=== PATIENT | female | born 1945 | race Caucasian/White ===

== ENCOUNTER → 2016-09-03 | Outpatient (CLI) | payer OTHER, MEDICARE | LOC: FIMAGING 13:27 | DX: Z12.31 Encounter for screening mammogram for malignant neoplasm of breast (principal) | CPT/HCPCS: G0202 ==

== ENCOUNTER → 2016-10-06 | Outpatient (CLI) | payer OTHER, MEDICARE | LOC: FIMAGING 14:00 | PROVIDERS: ATTEND Nurse Practitioner | DX: Z13.820 Encounter for screening for osteoporosis (principal); E11.9 Type 2 diabetes mellitus without complications; E78.2 Mixed hyperlipidemia; I10 Essential (primary) hypertension; Z85.3 Personal history of malignant neoplasm of breast ==

== ENCOUNTER → 2017-08-03 | Outpatient (CLI) | payer OTHER, MEDICARE | LOC: BRMIMAGING 11:47 | PROVIDERS: ATTEND Neurological Surgery | DX: M51.36 Other intervertebral disc degeneration, lumbar region (principal); M43.16 Spondylolisthesis, lumbar region; M41.85 Other forms of scoliosis, thoracolumbar region | CPT/HCPCS: 72100-PO ==

== ENCOUNTER → 2017-09-06 | Outpatient (CLI) | payer OTHER, MEDICARE | LOC: FIMAGING 11:15 | PROVIDERS: ATTEND Nurse Practitioner | DX: Z12.31 Encounter for screening mammogram for malignant neoplasm of breast (principal); Z85.3 Personal history of malignant neoplasm of breast; Z80.3 Family history of malignant neoplasm of breast ==

== ENCOUNTER → 2017-09-15 | Outpatient (CLI) | payer OTHER, MEDICARE | LOC: BRMIMAGING 13:12 | PROVIDERS: ATTEND Physician Assistant | DX: Z13.820 Encounter for screening for osteoporosis (principal); M85.89 Other specified disorders of bone density and structure, multiple sites; Z78.0 Asymptomatic menopausal state; Z85.3 Personal history of malignant neoplasm of breast ==

== ENCOUNTER 2017-10-05 05:15 | Inpatient (IN) | payer OTHER, MEDICARE ==
[2017-09-29 14:30] LABS: PLATELET COUNT 175 10^3/uL (150-400)
[2017-10-05] MEDS ORDERED: ceFAZolin 2 GM/DEXTROSE 100 ML IV ONE (06:12)
[2017-10-05] MEDS ORDERED: morphINE SR 15 MG TAB PO ONE (06:12)
[2017-10-05] MEDS ORDERED: GABAPENTIN 300 MG CAP PO ONE (06:12)
[2017-10-05] MEDS ORDERED: ACETAMINOPHEN 500 MG TAB PO ONE (06:12)
[2017-10-05] MEDS ORDERED: morphINE PF 0.2 MG in SYRINGE INTRATHECAL 1 SYR IT ONE (06:12)
[2017-10-05] MEDS ORDERED: LR 1,000 ML IV ONE (06:14)
[2017-10-05] MEDS ORDERED: LIDOCAINE 1% 5 ML SDV ID PRN (06:14)
[2017-10-05] MEDS ORDERED: BACITRACIN 50,000 UNITS/10 ML SYR IRR ONE ×3 (06:45→11:51)
[2017-10-05] MEDS ORDERED: EPINEPHrine 1 MG/ML INJ ONE (06:45)
[2017-10-05] MEDS ORDERED: BUPIVACAINE 0.25% 30 ML SDV ONE (06:45)
[2017-10-05] MEDS ORDERED: THROMBIN (BOVINE) 20,000 UNIT VIAL TP ONE (06:45)
--- NOTE | 2017-10-05 06:47 | PDHPUP ---
History & Physical Update H&P update statement: This history and physical update is based on an assessment of the patient which was completed after admission or registration (within 24 hours), but prior to the surgery/procedure. H&P update: H&P reviewed & patient examined, no change in patient's condition since H&P completed (Consents signed, site marked and all questions answered. )
[2017-10-05] MEDS ORDERED: CHLORHEXIDINE GLUC HIBICLENS 118 ML BTL TP ONE (06:48)
[2017-10-05] MEDS ORDERED: CITRATE DEXTROSE SOLN 500 ML BAG ONE ×2 (06:48→11:33)
[2017-10-05] MEDS ORDERED: SCOPOLAMINE HYDROBROMIDE 1 MG/3 DAYS PATCH TD ONE (07:26)
[2017-10-05] MEDS ORDERED: MIDAZOLAM 2 MG/2 ML VIAL IVP ONE (07:28)
--- NOTE | 2017-10-05 07:30 | PDANEPAE ---
ANE Past Medical History - Cardiovascular History Hx Hypertension: Yes Hx Arrhythmias: No Hx Chest Pain: No Hx Coronary Artery / Peripheral Vascular Disease: No Hx CHF / Valvular Disease: No Hx Palpitations: No - Pulmonary History Hx COPD: No Hx Asthma/Reactive Airway Disease: No Hx Recent Upper Respiratory Infection: No Hx Oxygen in Use at Home: No Hx Sleep Apnea: Yes Sleep Apnea Screening Result - Last Documented: Positive Pulmonary History Comment: sleep apnea; Narrow Nasel Passage; possibly had TB as child but unknown; - Neurologic History Hx Cerebrovascular Accident: No Hx Seizures: No Hx Dementia: No - Endocrine History Hx Diabetes: Yes Hypothyroid: No Hyperthyroid: No Obesity: severe Endocrine History Comment: T2 DM controlled w/out prescription meds; - Renal History Hx Renal Disorders: No - Liver History Hx Hepatic Disorders: No - Neurological & Psychiatric Hx Hx Neurological and Psychiatric Disorders: No - Cancer History Hx Cancer: Yes Cancer History Comment: Breast CA; rectal polyps; "froze off spot on cheek" - Congenital Disorder History Hx Congenital Disorders: No Congenital History Comment: cancer,arthritis - GI History Hx Gastrointestinal Disorders: No Gastrointestinal History Comment: gerd - Other Health History Other Health History: spinal stenosis; premature 3.5lbs; Anemia as child; - Chronic Pain History Chronic Pain: Yes (lower back;) - Surgical History Prior Surgeries: T&A; total Hysterectomy; [place] teeth; R breast lumpectomy x 2 ; Nasal; L Knee replacement x 3; B laser eye; Appy; ANE Review of Systems Review of Systems: - Exercise capacity METS (RN): 4 METS ANE Patient History - Allergies Allergies/Adverse Reactions: tetanus immune globulin [Tetanus Immune Globulin] Allergy (Unknown, Verified 06/20 10:02) Hives cat dander Allergy (Verified 08/02/17 10:02) dog dander Allergy (Verified 08/02/17 10:02) oxycodone [From Percocet] Allergy (Verified 08/02/17 10:02) Itching shellfish derived Allergy (Verified 08/02/17 10:01) Hives - Home Medications Home Medications: Acetaminophen [Tylenol ES 500 mg (*)] 500 mg PO Q4 PRN 09/10/17 [Last Taken 09/17] Ascorbic Acid [Vitamin C 500 mg (*)] 2,000 mg PO DAILY 09/10/17 [Last Taken 08/18] Aspirin EC [Aspirin EC 81 mg (*)] 162 mg PO DAILY 09/10/17 [Last Taken 09/28/17] Atorvastatin Calcium [Lipitor 40 mg (*)] 40 mg PO HS 09/10/17 [Last Taken ] Calcium Carb W/Vit D [Calcium Carb W/Vit D 500/200 (*)] 2 each PO DAILY [Last Taken 10/04/17] Cyanocobalamin [Vitamin B12 (*)] 2,500 mcg PO DAILY 09/10/17 [Last Taken ] Diclofenac Sodium [Voltaren 75 MG (*)] 75 mg PO BID 09/10/17 [Last Taken ] Folic Acid [Folic Acid 1 MG (*)] 1 mg PO DAILY 09/10/17 [Last Taken 10/05/17] Furosemide [Lasix 40 MG (*)] 40 mg PO DAILY 09/10/17 [Last Taken 10/04/17] Herbals/Supplements -Info Only 1 ea PO DAILY 09/10/17 [Last Taken 10/04/17] Methotrexate Sodium [Rheumatrex 2.5 mg (RX)] 15 mg PO MO@09 09/10/17 [Last Taken 09/28/17] Multivitamins [Multivitamin (*)] 1 each PO DAILY 09/10/17 [Last Taken 10/04/17] [place]-3 Fatty Acids [Fish Oil 1000 mg (*)] 2,000 mg PO DAILY 09/10/17 [Last Taken 09/28/17] Valsartan [Diovan (*)] 160 mg PO DAILY 09/10/17 [Last Taken 10/04/17] amLODIPine BESYLATE [Norvasc 2.5 mg (*)] 2.5 mg PO DAILY 09/10/17 [Last Taken ] Acetaminophen [Tylenol 325mg (*)] 325 mg PO DAILY PRN 10/05/17 [Last Taken 10/05 01:30] - NPO status NPO Since - Liquids (Date): 10/04/17 NPO Since - Liquids (Time): 04:00 NPO Since - Solids (Date): 10/04/17 NPO Since - Solids (Time): 23:00 - Smoking Hx Smoking Status: Never smoked - Family Anes Hx Family Hx Anesthesia Complications: denies ANE Labs/Vital Signs - Labs Result Diagrams: 09/29/17 14:18 09/29/17 14:18 - Vital Signs Blood Pressure: 145/93 Heart Rate: 86 Respiratory Rate: 16 O2 Sat (%): 94 Height: 154.94 cm Weight: 92.079 kg ANE Physical Exam - Airway Neck exam: decreased ROM Mallampati Score: Class 2 Mouth exam: normal dental/mouth exam - Pulmonary Pulmonary: no respiratory distress - Cardiovascular Cardiovascular: regular rate and rhythym - ASA Status ASA Status: III ANE Anesthesia Plan Anesthesia Plan: general endotracheal anesthesia Lines/Monitors: arterial line
[2017-10-05] MEDS ORDERED: MIDAZOLAM 2 MG/2 ML VIAL ONE (07:32)
[2017-10-05] MEDS ORDERED: REMIFENTANIL HCL 1 MG VIAL ONE ×3 (07:39)
[2017-10-05] MEDS ORDERED: fentaNYL 250 MCG/5 ML INJ ONE (07:39)
[2017-10-05] MEDS ORDERED: PROPOFOL/EMULSION 500 MG/50 ML BOTTLE IV ONE (07:40)
[2017-10-05] MEDS ORDERED: PHENYLEPHRINE HCL 100 MCG/ML SYR ONE ×3 (08:41→14:39)
[2017-10-05] MEDS ORDERED: ONDANSETRON 4 MG/2 ML VIAL ONE (08:41)
[2017-10-05] MEDS ORDERED: DEXAMETHASONE 4 MG/ML VIAL ONE (08:41)
[2017-10-05] MEDS ORDERED: ePHEDrine SULFATE 25 MG/5 ML SYR ONE ×2 (08:41→10:49)
[2017-10-05] MEDS ORDERED: GLYCOPYRROLATE 0.2 MG/1 ML VIAL ONE (09:31)
[2017-10-05] MEDS ORDERED: PHENYLEPHRINE 10 MG/ML SDV ONE (10:27)
[2017-10-05] MEDS ORDERED: HYDROmorphone HCL/NS 0.5 MG/ML SYR IVP PRN (15:34)
[2017-10-05] MEDS ORDERED: LACTULOSE 20 GM/30 ML UDCUP PO PRN (15:34)
[2017-10-05] MEDS ORDERED: POLYETHYLENE GLYCOL 3350 17 GM PKT PO PRN (15:34)
[2017-10-05] MEDS ORDERED: diphenhydrAMINE 25 MG CAP PO PRN (15:34)
[2017-10-05] MEDS ORDERED: ONDANSETRON DISINTEGRATING 4 MG TAB PO PRN (15:34)
[2017-10-05] MEDS ORDERED: BISACODYL 10 MG SUPP PR PRN (15:34)
[2017-10-05] MEDS ORDERED: MAGNESIUM HYDROXIDE 30 ML UDCUP PO PRN (15:34)
[2017-10-05] MEDS ORDERED: ONDANSETRON 4 MG/2 ML VIAL IVP PRN ×2 (15:34→15:58)
--- NOTE | 2017-10-05 15:50 | POSTOPPROG ---
Post Op Note Date of Operation: 10/05/17 Surgeon: Sandra Mcnamara Reprint Sorter: Roselyn Mcnamara PAAida Anesthesiologist: Morescu Anesthesia: GET(General Endotracheal) Pre-op Diagnosis: lumbar stenosis Post-op Diagnosis: same Indication: nerve compression Procedure: L2-S2 PSF with L2-S1 laminectomy, TLIFs, and bilat foraminotomies Findings: See dictation Inf/Abcess present in the surg proc area at time of surgery?: No Depth: Organ Space EBL: 500-1000 Complications: none Drains: Tyler Benjamin (x2) PA Addendum - Addendum .: S: Pt awake in PACU, denies pain. O: Sleeping but awakens easily NAD VSS Pupils equal, can read # of fingers shown MAEx4 Motor 5/5 BUE/BLE +LT Incision dressed cdi A: 72 yo F s/p L2-S2 PSF with L2-S1 laminectomy, TLIFs, and bilat foraminotomies P: To SDU overnight for monitoring given age, length of case, EBL PT/OT Post op xrays pending TEDs, SCDs, lovenox POD#1 Brace when OOB Pain management Call NS with any questions/concerns D/w Dr Randall
[2017-10-05] MEDS ORDERED: fentaNYL 100 MCG/2 ML INJ IVP PRN (15:58)
[2017-10-05] MEDS ORDERED: PROMETHAZINE HCL 25 MG/ML INJ IVP PRN (15:58)
[2017-10-05] MEDS ORDERED: LABETALOL HCL 5 MG/ML 20 ML MDV IVP PRN (15:58)
[2017-10-05] MEDS ORDERED: NALOXONE HCL 0.4 MG/ML INJ IVP PRN (15:58)
--- NOTE | 2017-10-05 15:58 | POSTANESTH ---
Post Anesthetic Evaluation Cardiovascular Status: Normal, Stable Respiratory Status: Normal, Stable Level of Consciousness/Mental Status: Can Participate in Eval Pain Control: Adequate, Prn Tx Ordered Nausea/Vomiting Control: Adequate, Prn Tx Ordered Complications Possibly Related to Anesthesia: None Noted
--- NOTE | 2017-10-05 16:50 | GOP ---
[f rep st] OPERATIVE REPORT DATE OF OPERATION: 10/05/2017 SURGEON: Butch Randall MD METAL FENCE ERECTOR: Sandra Mcnamara PA-C. ANESTHESIA: General. PREOPERATIVE DIAGNOSIS: 1. L2 through S1 lumbar spondylosis with scoliosis and severe spinal stenosis. 2. Low back pain. 3. Claudication. 4. Radiculopathy. 5. Weakness. 6. Treatment refractory to nonoperative intervention. POSTOPERATIVE DIAGNOSIS: 1. L2 through S1 lumbar spondylosis with scoliosis and severe spinal stenosis. 2. Low back pain. 3. Claudication. 4. Radiculopathy. 5. Weakness. 6. Treatment refractory to nonoperative intervention. PROCEDURE PERFORMED: 1. Posterior arthrodesis with approach to L2, L3, L4, L5, S1, and S2. 2. Posterolateral fusion with bilateral pedicle screw placement at L2, L3, L4, L5, S1, and S2 with S2 alar-pelvic screws from the Timeetra 5.5-6.0 System. 3. Decompressive laminectomy with bilateral medial facetectomies, L2-L3, L3-L4 , L4-L5, L5-S1. 4. Left-sided L2-L3 transforaminal lumbar interbody fusion with a 7 x 26 mm titanium coated PEEK cage filled with morselized autograft and allograft. 5. Left-sided L3-4 transforaminal lumbar interbody fusion with a 7 x 22 mm titanium coated PEEK cage filled with morselized autograft and allograft. 6. Left-sided L4-5 transforaminal lumbar interbody fusion with a 7 x 23 mm titanium PEEK elevate cage filled with morselized autograft and allograft. 7. Left-sided L5-S1 transfemoral lumbar interbody fusion with a 6 x 28 mm titanium coated PEEK cage filled with morselized autograft and allograft. 8. Posterolateral fusion on the right between L2 and S2 with morselized autograft and allograft. 9. Use of intraoperative 3D Stealth navigation. 10. Use of intraoperative fluoroscopy, less than 1-hour physician time. 11. Use of neuromonitoring. 12. Use of of the operating microscope. 13. Injection of preservative-free intrathecal narcotics. COMPLICATIONS: None. FINDINGS: per imaging SPECIMENS: None. ESTIMATED BLOOD LOSS: 850 mL. INDICATIONS: The patient is a 72-year-old, who unfortunately has been suffering from worsening low back pain with lower extremity claudication. She had evidence of scoliosis with severe spinal stenosis between L2 and L5. She also had claudication and radiculopathy refractory to nonoperative intervention. After discussion of the risks, benefits, and treatment alternatives, and after failing nonoperative intervention, we decided to proceed forth with surgery as described above. DESCRIPTION OF PROCEDURE: The patient was brought to the operating theater and underwent general endotracheal anesthesia without complications. She had Venodynes, LENNY hose, and the appropriate lines placed by Anesthesia. She was flipped prone onto the Tyler table and all bony processes inspected and padded. The lower lumbar region was prepped and draped in the usual sterile surgical fashion. A time-out was completed per protocol and the patient received antibiotics within 1-hour of incision. Using lateral fluoroscopy and a spinal needle, we picked our entry point to the L2 through S2 levels. This was marked in the midline. The incision was infiltrated with Marcaine with epinephrine. The incision was taken down with the scalpel blade, and then using the monopolar, taken down the midline through the lumbodorsal fascia. A subperiosteal dissection was carried out to the transverse processes of L2, L3, L4, L5, S1 and down to S2. Care taken to preserve the bilateral L1-L2 facet joint. Deep retractors were placed to maintain our exposure. We confirmed the level using lateral fluoroscopy. We attached the 3D Stealth navigation clamp to the spinous process of L4 and completed a 3D Stealth navigation spin. Using 3D Stealth navigation, we placed the private pilot holes for the bilateral pedicle screws at L2, L3, L4, L5, S1. All holes were manually palpated with no evidence of cortical breaches. Then tapped and placed 6.0 x 50 mm screws bilaterally at L2, 6.5 x 55 mm screws bilaterally at L3, 6.5 x 55 mm screw on the left at L4 and 6.5 x 50 mm screw on the right at L4, 6.5 x 50 mm screw on the left at L5, a 6.5 x 45 mm screw on the right at L5, a 6.5 x 40 mm screw on the left at S1, a 6.5 x 40 mm screw on the right at S1. We then completed bilateral S2 alar-pelvic screws with a 7.5 x 70 mm screw on the left, a 7.5 x 70 mm on the right at S2 from the ImmuVenast System. A 3D navigation spin demonstrated good placement of hardware. At this point, using combination of the bur tip on the drill bit, Kerrison punches and [place]ell rongeur, we completed a decompressive laminectomy with bilateral medial facetectomies at L2-L3, L3-L4, L4-L5 and L5-S1. We completed aggressive facetectomies on the left side between L2-L3, L3-L4, L4-L5 and L5- S1. We then moved down to L5-S1 where we distracted the disk space and completed the left L5-S1 diskectomy. We prepared the cartilaginous endplates and measured interbody space. We placed a 6 x 26 mm titanium coated PEEK cage filled with morselized autograft and allograft anteriorly and toward the midline. We packed additional morcellized autograft in the disk space for the interbody fusion. We let down the distraction and moved down to L4-5 where we completed a left-sided L4-5 diskectomy. We prepared the cartilaginous endplates and measured interbody space. We placed a 7 x 23 mm titanium PEEK elevate cage filled with morselized autograft and allograft anteriorly and toward the midline. We packed additional morcellized autograft into the disk space for the interbody fusion. We let down the distraction and moved up to L3- 4 and completed a left L3-4 diskectomy and prepared the cartilaginous endplates. We measured the interbody space and placed a 7 x 22 mm titanium coated PEEK cage filled with morselized autograft and allograft anteriorly and toward the midline. We packed additional morcellized autograft into the disk space for the interbody fusion. We let down distraction the and moved up to L2- L3 and complete left L2-3 diskectomy and prepared the cartilaginous endplates. We measured interbody space and placed a 7 x 26 mm titanium coated PEEK cage filled with morselized autograft and allograft anteriorly and toward the midline. We packed additional morcellized autograft in the disk space for the interbody fusion. We decorticated the bone on the right side between L2 and S2. The wound was irrigated copiously with bacitracin irrigation. We placed 2- rods into the heads of the screws between L2 and S2 and secured them down with cap screws, which were then tightened per the bookmaker's clerk's setting. Two crosslinks were placed at the L2-3 level and S1-S2 levels and secured down. We injected preservative-free intrathecal narcotics. We placed morselized autograft and allograft on the right side between L2 and S2 for the posterolateral fusion. A drain was left in the subfascial space and the suprafascial space. The wound was then closed in multiple layers using Vicryl sutures for the deep layers and Dermabond for the skin. The patient's wounds were dressed sterilely. She was flipped supine onto the transfer cart. She was awakened, extubated, and taken to the recovery room in stable condition. There were no complications and no noted changes on neuromonitoring throughout the procedure. /[id number]/MODL MTDD
[2017-10-05] MEDS: NS 1,000 ML IV SCH (18:01)
[2017-10-05] MEDS: ceFAZolin 2 GM/DEXTROSE 100 ML IV SCH (18:02)
[2017-10-05] MEDS: SCOPOLAMINE HYDROBROMIDE 1 MG/3 DAYS PATCH TD SCH (18:24)
[2017-10-05] MEDS: POLYETHYLENE GLYCOL 3350 17 GM PKT PO SCH ×2 (18:24→22:34)
[2017-10-05] MEDS: SENNOSIDES/DOCUSATE SODIUM TAB PO SCH (20:02)
[2017-10-05] MEDS: ATORVASTATIN CALCIUM 40 MG TAB PO SCH (20:02)
[2017-10-05] MEDS: FAMOTIDINE 20 MG TAB PO SCH (20:02)
[2017-10-05] MEDS: ACETAMINOPHEN 500 MG TAB PO SCH (22:33)
[2017-10-06] MEDS: ceFAZolin 2 GM/DEXTROSE 100 ML IV SCH (00:29)
[2017-10-06] MEDS: NS 1,000 ML IV SCH (03:45)
[2017-10-06] MEDS: ACETAMINOPHEN 500 MG TAB PO SCH ×3 (05:59→20:13)
[2017-10-06 06:01] LABS: PLATELET COUNT 136 10^3/uL (150-400)
--- NOTE | 2017-10-06 08:06 | NEUSURGPN ---
Date of Surgery: 10/05/17 Post Op Day: 1 Assessment/Plan: Assessment: 72 yo F s/p L2-S2 PSF with L2-S1 laminectomy, TLIFs, and bilat foraminotomies POD#1 Plan: -Ok to transfer to floor -PT/OT -Post op xrays pending -TEDs, SCDs, lovenox POD#1 -Brace when OOB -Pain management -MO on left 530cc output, right 30cc output. Will plan to remove superficial drain tomorrow -Call NS with any questions/concerns -Discussed with Dr Randall Subjective: Patient denies any pain at this time Objective: AxO x3 BLE 5/5 Sensation intact to light touch BLE Dressing and Incision CDI MO x2 patent Neuro Check Frequency: per routine Urinary Catheter in Place: No Catheter Insertion Date: 10/05/17 - Physician Discussed Patient with Dr.: Randall Neurosurgery Physical Exam - Vitals, I&O, Labs I and O 10/05/17 10/06/17 10/07/17 05:59 05:59 05:59 Intake Total 3688 Output Total 2460 50 Balance 1228 -50 Weight 92.079 kg Intake: IV Intake (ml) 2400 IV Infused (ml) 1288 Ns 1,000 ml @ 100 mls/hr 1088 IV CONT [facility] Rx#: [id number] ceFAZolin 2 GM/DEXTROSE 100 100 ml @ 200 mls/hr IV ONCALL ONE Rx#:[id number] ceFAZolin 2 GM/DEXTROSE 100 100 ml @ 200 mls/hr IV Q8H [facility] Rx#:[id number] Output: Urine (ml) 1080 Catheter 1080 Estimated Blood Loss (ml) 850 MO Drain Output (ml) 530 50 #1 Left Back Tyler 500 50 Benjamin #2 Right Tyler Benjamin 30 Vital Signs Temp Pulse Resp BP Pulse Ox 36.7 C 86 16 114/43 L 94 10/06/17 07:41 10/06/17 07:41 10/06/17 07:41 10/06/17 07:41 10/06/17 07:41 Laboratory Results 10/06/17 05:20 10/06/17 05:20 ICD10 Worksheet Patient Problems: Problems Problem Status Onset Lumbar stenosis Acute - ICD10 Problem Qualifiers (1) Lumbar stenosis
--- NOTE | 2017-10-06 10:16 | PDMN ---
Medical Necessity Medical necessity: IP surgery per [facility] cpt 37857, [id number] TLIF
[2017-10-06] MEDS: SENNOSIDES/DOCUSATE SODIUM TAB PO SCH ×2 (10:31→20:07)
[2017-10-06] MEDS: FOLIC ACID 1 MG TAB PO SCH (10:31)
[2017-10-06] MEDS: VALSARTAN 160 MG TAB PO SCH (10:31)
[2017-10-06] MEDS: FAMOTIDINE 20 MG TAB PO SCH ×2 (10:31→20:07)
[2017-10-06] MEDS: FUROSEMIDE 40 MG TAB PO SCH (10:31)
[2017-10-06] MEDS: MULTIVITAMINS 1 EACH TAB PO SCH (10:32)
[2017-10-06] MEDS: CALCIUM CARB W/VIT D 500 MG TAB PO SCH (10:32)
[2017-10-06] MEDS: CYANO/VITAMIN B12 1000 MCG TAB PO SCH (10:32)
[2017-10-06] MEDS: ASCORBIC ACID 500 MG TAB PO SCH (10:32)
[2017-10-06] MEDS: POLYETHYLENE GLYCOL 3350 17 GM PKT PO SCH ×3 (10:40→20:07)
--- NOTE | 2017-10-06 11:31 | ASMTCMCOM ---
CM Note CM Note Notes: Patient is POD #1 L2-S2 PSF with L2-S1 lami, TLIF, and bilateral foraminotomies. She is doing well - has been up in the chair and will work with therapies today. I spoke with her about d/c, and she'd like to go to a SNF. She requested referrals to [facility], which I sent. She is supported by her son and DIL, JOSH and Rain. Case Management will follow. Date Signed: 10/06/2017 11:30 AM Electronically Signed By:Erum Ivey RN
[2017-10-06] MEDS: HYDROCODONE/APAP 10/325 TAB PO PRN ×2 (11:55→23:11)
[2017-10-06] MEDS: ENOXAPARIN 40 MG/0.4 ML SYR SC SCH (17:03)
[2017-10-06] MEDS: ATORVASTATIN CALCIUM 40 MG TAB PO SCH (20:07)
[2017-10-06] MEDS: METHOCARBAMOL 750 MG TAB PO PRN (20:14)
[2017-10-07] MEDS: ACETAMINOPHEN 500 MG TAB PO SCH ×3 (05:27→21:29)
[2017-10-07] MEDS: HYDROCODONE/APAP 10/325 TAB PO PRN ×4 (05:29→19:35)
--- NOTE | 2017-10-07 07:48 | NEUSURGPN ---
Assessment/Plan: Assessment: 72 yo F s/p L2-S2 PSF with L2-S1 laminectomy, TLIFs, and bilat foraminotomies POD#2 Plan: -Ok to transfer to floor -PT/OT -Post op xrays show stable hardware -TEDs, SCDs, lovenox -Brace when OOB -Pain management -MO on left 340cc output, right 90cc output. DC right MO drain today -Call NS with any questions/concerns -Discussed with Dr Randall. Pt seen by Dr Randall as well today -Dispo: work on possible DC to snf tomorrow Subjective: Pt resting in bed, having some back pain but states that pain is well managed this AM. Has been ambulating well. Objective: AAOx3 NAD VSS MAEx4 Motor 5/5 BLE Incision cdi JPx2 Urinary Catheter in Place: No Catheter Insertion Date: 10/05/17 - Physician Discussed Patient with : Tonia Patient Seen by : Tonia Neurosurgery Physical Exam - Vitals, I&O, Labs I and O 10/06/17 10/07/17 10/08/17 05:59 05:59 05:59 Intake Total 3688 1930 Output Total 2460 430 Balance 1228 1500 Weight 92.079 kg Intake: Oral (ml) 1930 IV Intake (ml) 2400 IV Infused (ml) 1288 Ns 1,000 ml @ 100 mls/hr 1088 IV CONT [facility] Rx#: [id number] ceFAZolin 2 GM/DEXTROSE 100 100 ml @ 200 mls/hr IV ONCALL ONE Rx#:[id number] ceFAZolin 2 GM/DEXTROSE 100 100 ml @ 200 mls/hr IV Q8H [facility] Rx#:[id number] Output: Urine (ml) 1080 Catheter 1080 Estimated Blood Loss (ml) 850 MO Drain Output (ml) 530 430 #1 Left Back Tyler 500 340 Benjamin #2 Right Tyler Benjamin 30 90 Other: Intake Quantity Yes Sufficient Number of Voids Toilet 1 Vital Signs Temp Pulse Resp BP Pulse Ox 36.9 C 89 20 96/69 L 93 10/06/17 23:39 10/06/17 23:39 10/06/17 23:39 10/06/17 23:39 10/06/17 23:39 Laboratory Results 10/06/17 05:20 10/06/17 05:20 ICD10 Worksheet Patient Problems: Problems Problem Status Onset Lumbar stenosis Acute
[2017-10-07] MEDS: FUROSEMIDE 40 MG TAB PO SCH (08:55)
[2017-10-07] MEDS: FAMOTIDINE 20 MG TAB PO SCH ×2 (08:56→21:29)
[2017-10-07] MEDS: SENNOSIDES/DOCUSATE SODIUM TAB PO SCH ×2 (08:56→21:29)
[2017-10-07] MEDS: CALCIUM CARB W/VIT D 500 MG TAB PO SCH (08:56)
[2017-10-07] MEDS: VALSARTAN 160 MG TAB PO SCH (08:56)
[2017-10-07] MEDS: CYANO/VITAMIN B12 1000 MCG TAB PO SCH (08:56)
[2017-10-07] MEDS: FOLIC ACID 1 MG TAB PO SCH (08:56)
[2017-10-07] MEDS: ASCORBIC ACID 500 MG TAB PO SCH (08:56)
[2017-10-07] MEDS: MULTIVITAMINS 1 EACH TAB PO SCH (08:58)
[2017-10-07] MEDS: POLYETHYLENE GLYCOL 3350 17 GM PKT PO SCH ×3 (09:31→21:28)
[2017-10-07] MEDS: ENOXAPARIN 40 MG/0.4 ML SYR SC SCH (12:56)
[2017-10-07] MEDS: METHOCARBAMOL 750 MG TAB PO PRN (20:24)
[2017-10-07] MEDS: ATORVASTATIN CALCIUM 40 MG TAB PO SCH (21:28)
[2017-10-08] MEDS: HYDROCODONE/APAP 10/325 TAB PO PRN ×4 (03:24→19:19)
[2017-10-08] MEDS: ACETAMINOPHEN 500 MG TAB PO SCH ×3 (06:11→21:04)
--- NOTE | 2017-10-08 06:35 | NEUSURGPN ---
Assessment/Plan: Assessment: 72 yo F s/p L2-S2 PSF with L2-S1 laminectomy, TLIFs, and bilat foraminotomies POD#3 Plan: -PT/OT -Post op xrays show stable hardware -TEDs, SCDs, lovenox -Brace when OOB -Optimize pain management -MO on left 90cc output, will d/c -Call NS with any questions/concerns -Dispo: work on possible DC to snf today Subjective: low back pain, denies any new leg pain, numbness or tingling Objective: AAOx3 NAD MAEx4, Motor 5/5 BLE Incision cdi JPx1 Catheter Insertion Date: 10/05/17 - Physician Discussed Patient with DrMike: Tonia Neurosurgery Physical Exam - Vitals, I&O, Labs I and O 10/07/17 10/08/17 10/09/17 05:59 05:59 05:59 Intake Total 1930 150 Output Total 430 90 Balance 1500 60 Intake: Oral (ml) 1930 150 Output: MO Drain Output (ml) 430 90 #1 Left Back Tyler 340 90 Benjamin #2 Right Tyler Benjamin 90 Other: Intake Quantity Yes Sufficient Number of Voids Toilet 1 1 Vital Signs Temp Pulse Resp BP Pulse Ox 36.8 C 97 18 136/59 H 90 L 10/08/17 00:00 10/08/17 00:00 10/08/17 00:00 10/08/17 00:00 10/08/17 00:00 Laboratory Results 10/06/17 05:20 10/06/17 05:20 ICD10 Worksheet Patient Problems: Problems Problem Status Onset Lumbar stenosis Acute
[2017-10-08] MEDS: SENNOSIDES/DOCUSATE SODIUM TAB PO SCH ×2 (08:57→21:04)
[2017-10-08] MEDS: CYANO/VITAMIN B12 1000 MCG TAB PO SCH (08:57)
[2017-10-08] MEDS: ENOXAPARIN 40 MG/0.4 ML SYR SC SCH (08:59)
[2017-10-08] MEDS: POLYETHYLENE GLYCOL 3350 17 GM PKT PO SCH ×3 (08:59→21:04)
[2017-10-08] MEDS: FAMOTIDINE 20 MG TAB PO SCH ×2 (08:59→21:04)
[2017-10-08] MEDS: MULTIVITAMINS 1 EACH TAB PO SCH (08:59)
[2017-10-08] MEDS: FOLIC ACID 1 MG TAB PO SCH (08:59)
[2017-10-08] MEDS: FUROSEMIDE 40 MG TAB PO SCH (08:59)
[2017-10-08] MEDS: VALSARTAN 160 MG TAB PO SCH (09:00)
[2017-10-08] MEDS: CALCIUM CARB W/VIT D 500 MG TAB PO SCH (09:00)
[2017-10-08] MEDS: ASCORBIC ACID 500 MG TAB PO SCH (09:00)
[2017-10-08] MEDS: SCOPOLAMINE HYDROBROMIDE 1 MG/3 DAYS PATCH TD SCH (10:16)
[2017-10-08] MEDS: METHOCARBAMOL 750 MG TAB PO PRN (19:19)
[2017-10-08] MEDS: ATORVASTATIN CALCIUM 40 MG TAB PO SCH (21:04)
[2017-10-09] MEDS: HYDROCODONE/APAP 10/325 TAB PO PRN ×3 (02:42→14:02)
[2017-10-09] MEDS: ACETAMINOPHEN 500 MG TAB PO SCH ×2 (05:59→15:18)
[2017-10-09] MEDS: ASCORBIC ACID 500 MG TAB PO SCH (08:34)
[2017-10-09] MEDS: CALCIUM CARB W/VIT D 500 MG TAB PO SCH (08:34)
[2017-10-09] MEDS: MULTIVITAMINS 1 EACH TAB PO SCH (08:35)
[2017-10-09] MEDS: METHOCARBAMOL 750 MG TAB PO PRN (08:35)
[2017-10-09] MEDS: FOLIC ACID 1 MG TAB PO SCH (08:37)
[2017-10-09] MEDS: CYANO/VITAMIN B12 1000 MCG TAB PO SCH (08:40)
[2017-10-09] MEDS: FAMOTIDINE 20 MG TAB PO SCH (08:41)
[2017-10-09] MEDS: FUROSEMIDE 40 MG TAB PO SCH (08:42)
[2017-10-09] MEDS: VALSARTAN 160 MG TAB PO SCH (08:44)
[2017-10-09] MEDS: ENOXAPARIN 40 MG/0.4 ML SYR SC SCH (08:55)
[2017-10-09] MEDS: SENNOSIDES/DOCUSATE SODIUM TAB PO SCH (10:32)
[2017-10-09] MEDS: POLYETHYLENE GLYCOL 3350 17 GM PKT PO SCH ×2 (10:33→17:08)
--- NOTE | 2017-10-09 12:57 | NEUSURGPN ---
Date of Surgery: 10/05/17 Post Op Day: 4 Assessment/Plan: 72 yo F s/p L2-S2 PSF with L2-S1 laminectomy, TLIFs, and bilat foraminotomies POD#4. Post op xrays show stable hardware overall deconditioned. Plan: -PT/OT -TEDs, SCDs, lovenox -Brace when OOB -Optimize pain management -Call NS with any questions/concerns -Dispo: hopefully to SNF this afternoon. Subjective: doing well. still feels weak overall. the post op pain is more than she expected. Objective: AAOX4 NAD VSS EOMI, PEARLA no facial droop MAEx4, BLE 5/5 SILT INcision, dressed, cdi. Urinary Catheter in Place: No Catheter Insertion Date: 10/05/17 - Physician Discussed Patient with : Tonia Neurosurgery Physical Exam - Vitals, I&O, Labs I and O 10/08/17 10/09/17 10/10/17 05:59 05:59 05:59 Intake Total 150 250 800 Output Total 90 300 Balance 60 -50 800 Intake: Oral (ml) 150 250 800 Output: Urine (ml) 300 Toilet 300 MO Drain Output (ml) 90 #1 Left Back Tyler 90 Benjamin Other: Intake Quantity Yes Yes Sufficient Number of Voids Toilet 1 1 1 Vital Signs Temp Pulse Resp BP Pulse Ox 37.3 C 90 16 115/84 H 94 10/09/17 07:33 10/09/17 07:33 10/09/17 07:33 10/09/17 08:44 10/09/17 07:33 Laboratory Results 10/06/17 05:20 10/06/17 05:20 ICD10 Worksheet Patient Problems: Problems Problem Status Onset Lumbar stenosis Acute
--- NOTE | 2017-10-09 13:34 | PDIAF ---
- Diagnosis Diagnosis: lumbar spinal stenosis with radiculopathy Code Status: Full Code - Medication Management Discharge Medications: Medications to Continue on Transfer Acetaminophen [Tylenol ES 500 mg (*)] 500 mg PO Q4 PRN 09/10/17 [Last Taken 09/17] Ascorbic Acid [Vitamin C 500 mg (*)] 2,000 mg PO DAILY 09/10/17 [Last Taken 08/18] Aspirin EC [Aspirin EC 81 mg (*)] 162 mg PO DAILY 09/10/17 [Last Taken 09/28/17] Atorvastatin Calcium [Lipitor 40 mg (*)] 40 mg PO HS 09/10/17 [Last Taken ] Calcium Carb W/Vit D [Calcium Carb W/Vit D 500/200 (*)] 2 each PO DAILY [Last Taken 10/04/17] Cyanocobalamin [Vitamin B12 (*)] 2,500 mcg PO DAILY 09/10/17 [Last Taken ] Folic Acid [Folic Acid 1 MG (*)] 1 mg PO DAILY 09/10/17 [Last Taken 10/05/17] Furosemide [Lasix 40 MG (*)] 40 mg PO DAILY 09/10/17 [Last Taken 10/04/17] Herbals/Supplements -Info Only 1 ea PO DAILY 09/10/17 [Last Taken 10/04/17] Multivitamins [Multivitamin (*)] 1 each PO DAILY 09/10/17 [Last Taken 10/04/17] [place]-3 Fatty Acids [Fish Oil 1000 mg (*)] 2,000 mg PO DAILY 09/10/17 [Last Taken 09/28/17] Valsartan [Diovan (*)] 160 mg PO DAILY 09/10/17 [Last Taken 10/04/17] amLODIPine BESYLATE [Norvasc 2.5 mg (*)] 2.5 mg PO DAILY 09/10/17 [Last Taken ] HYDROcodone/APAP 10/325 [[place]and[place] 10/325 (*)] 1 - 2 tab PO Q6HRS PRN tab 10/09/17 [Last Taken Unknown] Methocarbamol [Robaxin 750 mg (*)] 750 mg PO QID PRN #0 tab 10/09/17 [Last Taken Unknown] Polyethylene Glycol 3350 [Miralax 17 gm (*)] 17 gm PO DAILY PRN pkt 10/09/17 [ Last Taken Unknown] Sennosides/Docusate Sodium [Senokot-S] 1 - 2 tab PO BID tab 10/09/17 [Last Taken Unknown] Discharge Medications: Refer to the Discharge Home Medication list for PRN reason. - Orders Services needed: Registered Nurse, Certified Sales Porter, Physical Therapy, Occupational Therapy Diet Recommendation: no restrictions on diet Diet Texture: Regular Texture Diet Stoner: No Juanito Stockings Discontinue Date: 1 week post op Wound Care Instructions: pay wash and allow water to run across wound daily, no baths or soaking. Redress after bathing. Activity/Weight Bearing Restrictions: no BLT >15lbs - Follow Up Care Current Providers and Referrals: Aditi Mccurdy, REFLESHER [Primary Care Provider] -
--- NOTE | 2017-10-09 14:00 | ASMTCMCOM ---
CM Note CM Note Notes: Pt is ready for DC today. Pt chose [facility]. They have arranged pickup for 5:30. Final orders faxed. Date Signed: 10/09/2017 01:59 PM Electronically Signed By:Radha Dominguez LCSW
--- NOTE | 2017-10-09 14:58 | ASMTLACE ---
LACE Length of stay for Answers: 3 days current admission Acuity / Level of Answers: Yes Care: Did the patient have an inpatient admission? Comorbidities - select Answers: Diabetes (uncontrolled or all that apply controlled) Other Notes: HTN # of Emergency department Answers: 0 visits in the last 6 months Score: 8 Date Signed: 10/09/2017 02:57 PM Electronically Signed By:Radha Dominguez LCSW
[2017-10-09 16:02] VITALS: BP 153/66
--- NOTE | 2017-10-13 13:06 | GDS ---
[f rep st] DISCHARGE SUMMARY ADMITTING DIAGNOSES: Lumbar degenerative disk disease and lumbar stenosis. DISCHARGE DIAGNOSES: Status post L2 to S1 laminectomy with L2 to S2 posterior fusion with L2 to S1 t ransforaminal lumbar interbody fusion and bilateral foraminotomies. CONSULTS: Physical Therapy, Occupational Therapy. DISPOSITION: To correction facility. HOSPITAL COURSE: The patient is a 72-year-old female patient who was seen in Dr. Randall's clinic as an outpatient. She was found to have advanced lumbar degenerative changes with lumbar stenosis L2-S1 . She tried and failed conservative management. After careful consideration, elected to proceed wit h surgical intervention and have L2 to S1 laminectomy with TLIF bilateral foraminotomies and L2 to S2 posterior fusion. The procedures were performed by Dr. Butch Randall for which there were no known complications. Please see the operative report for further details. After the operation, the patien t was in stable condition and was transferred from the operating room to the PACU and from the PACU t o the postsurgical floor. While on the floor, patient received physical therapy, occupational therap y, pain management, and DVT prophylaxis. All drains and catheters removed prior to discharge. The p atient underwent a set of postoperative lumbar spine x-rays which demonstrated stable, well-placed joseph rdware. The patient continued to make good progress with therapies, but was not ready for discharge to home independently. She was subsequently discharged to a correction facility. DISCHARGE INSTRUCTIONS: Diet as tolerated. Activity: No bending, lifting, or twisting. Patient to wear a lumbar brace whenever out of bed. She will keep her incision clean, dry, and intact. MEDICATIONS: Please see the medication reconciliation followup. The patient has been asked to follo w up in the office in approximately 2-3 weeks. We have asked the patient to call sooner with any add itional questions or concerns. /[id number]/MODL
--- NOTE | 2017-10-13 14:58 | NEUSURGPN ---
[facility] Patient Name: CASEY CASTANEDA Rpt#: [id number] Unit Number: [id number] Attending/ER Physician: Butch Randall MD Patient Type: DIS IN Adm Date/Source: 10/05/17 PHY Discharge Date: 10/09/17 Primary Carrier: MEDICARE INPATIENT Neurosurgical Progress Note Date of Surgery: 10/05/17 Post Op Day: 4 Assessment/Plan: 72 yo F s/p L2-S2 PSF with L2-S1 laminectomy, TLIFs, and bilat foraminotomies POD#4. Post op xrays show stable hardware overall deconditioned. Plan: -PT/OT -TEDs, SCDs, lovenox -Brace when OOB -Optimize pain management -Call NS with any questions/concerns -Dispo: hopefully to SNF this afternoon. Subjective: doing well. still feels weak overall. the post op pain is more than she expected. Objective: AAOX4 NAD VSS EOMI, PEARLA no facial droop MAEx4, BLE 5/5 SILT INcision, dressed, cdi. Urinary Catheter in Place: No Catheter Insertion Date: 10/05/17 - Physician Discussed Patient with : [facility] Physical Exam - Vitals, I O, Labs I and O 10/08/17 10/09/17 10/10/17 05:59 05:59 05:59 Intake Total 150 250 800 Output Total 90 300 Balance 60 -50 800 Intake: Oral (ml) 150 250 800 Output: Urine (ml) 300 Toilet 300 MO Drain Output (ml) 90 #1 Left Back Tyler 90 Benjamin Other: Intake Quantity Yes Yes Sufficient Number of Voids Toilet 1 1 1 Vital Signs Temp Pulse Resp BP Pulse Ox 37.3 C 90 16 115/84 H 94 10/09/17 07:33 10/09/17 07:33 10/09/17 07:33 10/09/17 08:44 10/09/17 07:33 Laboratory Results 10/06/17 05:20 10/06/17 05:20 ICD10 Worksheet Patient Problems: Problems Problem Status Onset Lumbar stenosis Acute *This report may have been compiled using a voice recognition system, and might contain typographical errors and blanks.* Felix JULIAN 10/09/17 1257 <Electronically signed by Felix Chung PAC> Butch Randall MD 10/12/17 0913 <Electronically signed by Butch Randall MD> 1255 T: ROGERS 10/09/17 1255 CC:
== END 2017-10-09 17:17 | DRG 455 ==
LOC: F3N 05:15 → F2N 14:54 → F3N 10-07 09:30
PROVIDERS: ADMIT Neurological Surgery; ATTEND Neurological Surgery
PROC: 0SG1071 Fusion of 2 or more Lumbar Vertebral Joints with Autologous Tissue Substitute, Posterior Approach, Posterior Column, Open Approach (ICD-10-PCS; principal; 2017-10-05 07:45)
PROC: 00NY0ZZ Release Lumbar Spinal Cord, Open Approach (ICD-10-PCS; principal; 2017-10-05 07:45)
PROC: 0SG30AJ Fusion of Lumbosacral Joint with Interbody Fusion Device, Posterior Approach, Anterior Column, Open Approach (ICD-10-PCS; principal; 2017-10-05 07:45)
PROC: 8E0WXBZ Computer Assisted Procedure of Trunk Region (ICD-10-PCS; principal; 2017-10-05 07:45)
PROC: 0SG3071 Fusion of Lumbosacral Joint with Autologous Tissue Substitute, Posterior Approach, Posterior Column, Open Approach (ICD-10-PCS; principal; 2017-10-05 07:45)
PROC: 0SG10AJ Fusion of 2 or more Lumbar Vertebral Joints with Interbody Fusion Device, Posterior Approach, Anterior Column, Open Approach (ICD-10-PCS; principal; 2017-10-05 07:45)
DX: M48.062 Spinal stenosis, lumbar region with neurogenic claudication (principal); M47.26 Other spondylosis with radiculopathy, lumbar region; M43.16 Spondylolisthesis, lumbar region; I10 Essential (primary) hypertension; G47.30 Sleep apnea, unspecified; E11.9 Type 2 diabetes mellitus without complications; Z85.3 Personal history of malignant neoplasm of breast; Z96.652 Presence of left artificial knee joint; Z90.710 Acquired absence of both cervix and uterus
CPT/HCPCS: 97116-GP; 97161-GP; 97165-GO; 97530-GP; 97535-GO; C1713; G8978-GP-CJ; G8979-GP-CI; G8987-GO-CJ; G8988-GO-CI; J0171; J0690; J1100; J1650; J2250; J2274; J2370; J2405; J2704; J3010; J7060

== ENCOUNTER → 2018-01-10 | Outpatient (CLI) | payer OTHER, MEDICARE | LOC: BRMIMAGING 10:59 | PROVIDERS: ATTEND Neurological Surgery | DX: M43.16 Spondylolisthesis, lumbar region (principal); M51.36 Other intervertebral disc degeneration, lumbar region; M47.26 Other spondylosis with radiculopathy, lumbar region; M47.814 Spondylosis without myelopathy or radiculopathy, thoracic region; Z98.1 Arthrodesis status | CPT/HCPCS: 72100-PO ==

== ENCOUNTER → 2018-04-18 | Outpatient (CLI) | payer OTHER, MEDICARE | LOC: BRMIMAGING 10:19 | PROVIDERS: ATTEND Neurological Surgery | DX: Z09 Encounter for follow-up examination after completed treatment for conditions other than malignant neoplasm (principal); Z98.1 Arthrodesis status | CPT/HCPCS: 72100-PO ==

== ENCOUNTER → 2018-08-30 | Outpatient (CLI) | payer OTHER, MEDICARE | LOC: BRMIMAGING 10:39 | PROVIDERS: ATTEND Nurse Practitioner | DX: I70.0 Atherosclerosis of aorta (principal); I10 Essential (primary) hypertension; E11.9 Type 2 diabetes mellitus without complications; E78.2 Mixed hyperlipidemia | CPT/HCPCS: 76705-PO ==

== ENCOUNTER → 2018-09-13 | Outpatient (CLI) | payer OTHER, MEDICARE | LOC: FIMAGING 11:15 | PROVIDERS: ATTEND Nurse Practitioner | DX: Z12.31 Encounter for screening mammogram for malignant neoplasm of breast (principal); Z85.3 Personal history of malignant neoplasm of breast; Z80.3 Family history of malignant neoplasm of breast ==

== ENCOUNTER → 2018-10-18 | Outpatient (CLI) | payer OTHER, MEDICARE | LOC: BRMIMAGING 11:29 ==

== ENCOUNTER 2018-10-20 09:19 | Inpatient (IN) | payer OTHER, MEDICARE | END 2018-10-28 15:00 | disposition home or self-care (01) | LOC: F2N 10-23 13:37 → F3N 10-24 14:00 → F2N 10-23 18:00 → F3E 20:30 ==